=== PATIENT | female | born 1955 ===

== ENCOUNTER 2018-05-22 09:45 | Inpatient (IN) | payer OTHER ==
[~2018-05-22] VITALS: Ht 160 cm; Wt 79.4 kg
[~2018-05-22 09:45] MED LIST: LEVO-T75 MCG PO; METFORMIN HCL500 MG PO; TOPROL XL50 M1 PO
== END 2018-05-26 09:05 | DRG 737 ==
LOC: O/R 05-25 05:45 → SURG 05-25 07:00 → OB/GYN 05-25 13:57
PROVIDERS: Obstetrics & Gynecology Gynecologic Oncology
PROC: 0DBW4ZZ Excision of Peritoneum, Percutaneous Endoscopic Approach (ICD-10-PCS; 2018-05-25)
PROC: 0UT24ZZ Resection of Bilateral Ovaries, Percutaneous Endoscopic Approach (ICD-10-PCS; 2018-05-25)
PROC: 0UT74ZZ Resection of Bilateral Fallopian Tubes, Percutaneous Endoscopic Approach (ICD-10-PCS; 2018-05-25)
PROC: 0DTJ4ZZ Resection of Appendix, Percutaneous Endoscopic Approach (ICD-10-PCS; 2018-05-25)
PROC: 0BT Respiratory System, Resection (ICD-10-PCS; 2018-05-25)
PROC: 0UT94ZZ Resection of Uterus, Percutaneous Endoscopic Approach (ICD-10-PCS; principal; 2018-05-25 07:00)
DX: C56.1 Malignant neoplasm of right ovary (principal); C78.6 Secondary malignant neoplasm of retroperitoneum and peritoneum; D25.9 Leiomyoma of uterus, unspecified; K36 Other appendicitis; N83.292 Other ovarian cyst, left side; N83.291 Other ovarian cyst, right side; N72 Inflammatory disease of cervix uteri